=== PATIENT | male | born 1975 | race Caucasian/White ===

== ENCOUNTER 2022-10-30 06:20 | Emergency (ER) | payer MEDICAID, OTHER ==
[~2022-10-30] VITALS: Ht 167.6 cm; Wt 97.5 kg
[2022-10-30 07:15] LABS: HEMATOCRIT 38.2 % (36.7-47.1); MEAN CORPUSCULAR HEMOGLOBIN 27.9 uug (23.8-33.4); MEAN CORPUSCULAR VOLUME 84.7 fL (73.0-96.2); PLATELET COUNT (AUTO) 227 K/uL (152-348)
--- NOTE | 2022-10-30 07:18 | NUR ---
PT IS IN ROOM #2B. DR MACIEL EVALUATED THE PT.
[2022-10-30 07:44] LABS: BILIRUBIN,DIRECT 0.1 mg/dL (0.0-0.2); BILIRUBIN,TOTAL 0.3 mg/dL (0.2-1.0); CREATININE 1.1 mg/dL (0.6-1.3); TOTAL PROTEIN, SERUM 7.5 g/dL (6.4-8.2)
[2022-10-30] MEDS ORDERED: SULF1TAB48 PO (08:51)
[2022-10-30] MEDS ORDERED: CEPH500T PO (08:51)
--- NOTE | 2022-10-30 09:06 | NUR ---
PT WAS D/C'd TO HOME. D/C INSTRUCTIONS GIVEN TO THE PT BY DR MACIEL.
[2022-10-30 09:08] VITALS: BP 138/80
== END 2022-10-30 09:17 | disposition home or self-care (01) ==
LOC: ER 06:32
DX: L03.116 Cellulitis of left lower limb (principal); R60.0 Localized edema; E78.5 Hyperlipidemia, unspecified; G89.29 Other chronic pain; F17.210 Nicotine dependence, cigarettes, uncomplicated; R07.89 Other chest pain
CPT/HCPCS: 36415; 71045; 84484; 85025; 93005; A4663